=== PATIENT | male | born 1945 | race African-American/Black ===

== ENCOUNTER 2018-09-15 14:02 | Inpatient (IN) | payer OTHER | END 2018-09-29 11:25 | disposition home or self-care (01) | LOC: Y3W 09-23 17:41 → YASAS 14:02 → Y3W 21:13 ==

== ENCOUNTER 2018-12-29 15:55 | Inpatient (IN) | payer OTHER ==
[2018-12-29 22:19] VITALS: BMI 22.6
--- NOTE | 2018-12-30 01:36 | HP ---
CIWA Score - Admission Criteria [facility]ASAS Guidelines: Admission for Medically Managed Detox: Requires at least one of the followin. CIWA greater than 12 2. Seizures within the past 24 hours 3. Delirium tremens within the past 24 hours 4. Hallucinations within the past 24 hours 5. Acute intervention needed for co occurring medical disorder 6. Acute intervention needed for co occurring psychiatric disorder 7. Severe withdrawal that cannot be handled at a lower level of care (continued vomiting, continued diarrhea, abnormal vital signs) requiring intravenous medication and/or fluids 8. Admission ROS BHS - HPI Chief Complaint: Seeking admission to Rehab. Allergies/Adverse Reactions: Allergies Allergy/AdvReac Type Severity Reaction Status Date / Time No Known Allergies Allergy Verified 12/29/18 22:05 History of Present Illness: 73 years old male is seeking admission to Rehab. He was admitted at [facility] for the period December 22, 2018 - December 29, 2018. He was referred to Rehab. program due to opioid use disorder. He has medical history of hypertension, hepatitis B and seizure. He denies suicidal ideation at this time. Patient is status post a fall at home and has a periorbital laceration on his left eyebrow. - Ebola screening Have you traveled outside of the country in the last 21 days: No (N) Have you had contact with anyone from an Ebola affected area: No Do you have a fever: No - Review of Systems Constitutional: No Symptoms Reported EENT: reports: No Symptoms Reported Respiratory: reports: No Symptoms reported Cardiac: reports: No Symptoms Reported GI: reports: No Symptoms Reported : reports: No Symptoms Reported Musculoskeletal: reports: No Symptoms Reported Integumentary: reports: No Symptoms Reported Neuro: reports: No Symptoms reported Endocrine: reports: No Symptoms Reported Hematology: reports: No Symptoms Reported Psychiatric: reports: No Sypmtoms Reported, Mood/Affect Appropiate Other Systems: Reviewed and Negative Patient History - Patient Medical History Hx Anemia: No Hx Asthma: No Hx Chronic Obstructive Pulmonary Disease (COPD): No Hx Cancer: No Hx Cardiac Disorders: No Hx Congestive Heart Failure: No Hx Hypertension: Yes (Nifedipine) Hx Hypercholesterolemia: No Hx Pacemaker: No HX Cerebrovascular Accident: No Hx Seizures: Yes (Keppra) Hx Dementia: No Hx Diabetes: No Hx Gastrointestinal Disorders: No Hx Liver Disease: Yes (HEP B - not on medication) Hx Genitourinary Disorders: No Hx Sexually Transmitted Disorders: No Hx Renal Disease (ESRD): No Hx Thyroid Disease: No Hx Human Immunodeficiency Virus (HIV): No Hx Hepatitis C: No Hx Depression: No Hx Suicide Attempt: No Hx Bipolar Disorder: No Hx Schizophrenia: No - Patient Surgical History Past Surgical History: Yes Other Surgical History: JAW FX Anesthesia Reaction: No - PPD History Documented Results: Negative w/proof Implanted On Prior [facility] Admission?: Yes Date: 09/17/18 PPD to be Administered?: No - Reproductive History Patient is a Female of Child Bearing Age (11 -55 yrs old): No (male) - Smoking Cessation Smoking history: Current every day smoker Have you smoked in the past 12 months: Yes Aproximately how many cigarettes per day: 4 Cigars Per Day: 0 Hx Chewing Tobacco Use: No Initiated information on smoking cessation: Yes 'Breaking Loose' booklet given: 12/30/18 - Substance & Tx. History Hx Alcohol Use: Yes Hx Substance Use: Yes Substance Use Type: Alcohol, Cocaine, Opiates Hx Substance Use Treatment: Yes ([facility]) - Substances abused Heroin Other (specify): SNIFF Substance route: Inhalation Frequency: Daily Amount used: 4-5 BAGS Age of first use: 21 Date of last use: 12/29/18 Alcohol Other (specify): wine-maddog Substance route: Oral Frequency: Daily Amount used: 1 pint of wine Age of first use: 21 Date of last use: 12/29/18 Family Disease History - Family Disease History Family History: Denies Admission Physical Exam [facility] - Vital Signs Vital Signs: Vital Signs - 24 hr 12/29/18 22:04 Temperature 97.2 F L Pulse Rate 87 Respiratory 16 Rate Blood Pressure 113/72 - Physical General Appearance: Yes: Within Normal Limits HEENTM: Yes: Within Normal Limits Respiratory: Yes: Within Normal Limits Neck: Yes: Supple Breast: Yes: Breast Exam Deferred Cardiology: Yes: Regular Rhythm, Regular Rate Abdominal: Yes: Normal Bowel Sounds Genitourinary: Yes: Within Normal Limits Back: Yes: Normal Inspection Musculoskeletal: Yes: Within Normal Limits Extremities: Yes: Normal Inspection Neurological: Yes: Within Normal Limits, Normal Mood/Affect Integumentary: Yes: Warm Lymphatic: Yes: Within Normal Limits Cleared for Admission [facility] - Detox or Rehab [facility] Level of Care: Observation Bed Claeared for Rehab Admission: Yes Breathalyzer - Breathalyzer Breathalyzer: 0 Urine Drug Screen - Test Device Lot number: [id number] Expiration date: 09/23/20 - Control Is test valid?: Yes - Results Drug screen NEGATIVE: No Urine drug screen results: FEN-Fentanyl, MOP-Opiates, OXY-Oxycodone, MTD- Methadone Inpatient Rehab Admission - Rehab Decision to Admit Inpatient rehab admission?: Yes - Initial Determination Are CD services needed?: No Free of communicable disease: Yes Not in need of hospitalization: No - Rehab Admission Criteria Previous failed treatment: Yes Poor recovery environment: Yes Comorbidities: Yes Lacks judgement: Yes Patient is meeting Inpatient Rehab admission criteria:: Yes
[2018-12-30] MEDS ORDERED: MAGNESIUM HYDROX 2400MG/30ML ORAL SUSPENSION 30 ML CUP PO PRN (02:01)
[2018-12-30] MEDS ORDERED: P-EPHED 60MG/TRIPROLIDI 2.5MG TABLET PO PRN (02:01)
[2018-12-30] MEDS ORDERED: MAGNESIUM CITRATE 300 ML BOTTLE PO PRN (02:01)
[2018-12-30] MEDS ORDERED: LOPERAMIDE HCL 2 MG CAPSULE PO PRN (02:01)
[2018-12-30] MEDS ORDERED: MENTHOL/PHENOL 1 EACH UD MM PRN (02:01)
[2018-12-30] MEDS ORDERED: guaiFENesin 200 MG/10 ML 10 ML UNIT-DOSE CUPS PO PRN (02:01)
[2018-12-30] MEDS ORDERED: NICOTINE POLACRILEX 2 MG GUM BC PRN (02:01)
[2018-12-30] MEDS ORDERED: MAG HYDROX/AL HYDROX/SIMETH 30 ML UNIT-DOSE CUP PO PRN (02:01)
[2018-12-30] MEDS: levETIRAcetam 500 MG TABLET (FP) PO SCH ×2 (10:05→21:46)
[2018-12-30] MEDS: PRENATAL VITAMINS W/ FOLIC ACID TABLET (FP) PO SCH (10:05)
[2018-12-30] MEDS: NICOTINE 14 MG/24 HOURS TOPICAL PATCH TD SCH (10:06)
[2018-12-30] MEDS: BACITRACIN/POLYMYXIN B SULFATE 15 GM TUBE TP SCH ×2 (10:14→21:46)
[2018-12-30] MEDS: NIFEdipine E.R. 30 MG TABLET (FP) PO SCH (10:59)
--- NOTE | 2018-12-30 12:17 | EKG ---
Test Reason : Blood Pressure : / mmHG Vent. Rate : 089 BPM Atrial Rate : 089 BPM P-R Int : 198 ms QRS Dur : 076 ms QT Int : 398 ms P-R-T Axes : 075 036 064 degrees QTc Int : 484 ms NORMAL SINUS RHYTHM MINIMAL VOLTAGE CRITERIA FOR LVH, MAY BE NORMAL VARIANT SEPTAL INFARCT , AGE UNDETERMINED ABNORMAL ECG WHEN COMPARED WITH ECG OF 15-SEP-2018 21:08, SEPTAL INFARCT IS NOW PRESENT Confirmed by MARTIN HILL MD ([id number]) on 12/30/2018 12:17:06 PM Referred By: Confirmed By:MARTIN HILL MD
[2018-12-30 13:03] LABS: URINE APPEARANCE Clear; URINE BILIRUBIN Negative (NEGATIVE); URINE COLOR Yellow; URINE GLUCOSE (UA) Negative (NEGATIVE); URINE KETONE Negative (NEGATIVE); URINE LEUK ESTERASE Negative (NEGATIVE); URINE NITRITE Negative (NEGATIVE); URINE PROTEIN Negative (NEGATIVE); URINE UROBILINOGEN 0.2 mg/dL (0.2-1.0)
[2018-12-30] MEDS: THIAMINE HCL 100 MG TABLET (FP) PO SCH (21:46)
[2018-12-30] MEDS: MELATONIN 5 MG TABLETS PO PRN (21:47)
[2018-12-30] MEDS: IBUPROFEN 400 MG TABLET (FP) PO PRN (21:48)
[2018-12-31] MEDS ORDERED: PT OWN MED DRAWER 7, Y5N ONE (08:57)
[2018-12-31] MEDS: IBUPROFEN 400 MG TABLET (FP) PO PRN (09:27)
[2018-12-31] MEDS: NICOTINE 14 MG/24 HOURS TOPICAL PATCH TD SCH (09:28)
[2018-12-31] MEDS: levETIRAcetam 500 MG TABLET (FP) PO SCH ×2 (09:28→21:10)
[2018-12-31] MEDS: PRENATAL VITAMINS W/ FOLIC ACID TABLET (FP) PO SCH (09:28)
[2018-12-31] MEDS: NIFEdipine E.R. 30 MG TABLET (FP) PO SCH (12:54)
[2018-12-31] MEDS: ACETAMINOPHEN 325 MG TABLET (FP) PO PRN ×2 (12:54→21:11)
[2018-12-31] MEDS: BACITRACIN/POLYMYXIN B SULFATE 15 GM TUBE TP SCH ×2 (12:56→21:11)
[2018-12-31 14:18] LABS: HEMATOCRIT 40.2 % (35.4-49); HEMOGLOBIN 13.6 GM/dL (11.7-16.9); MCH 32.8 pg (25.7-33.7); MEAN CELL VOLUME 96.5 fl (80-96); MEAN PLT VOLUME 7.7 fl (7.5-11.1); PLATELET COUNT 304 K/MM3 (134-434); RBC 4.16 M/mm3 (4.00-5.60); RDW 14.1 % (11.9-15.9); WHITE BLOOD COUNT 7.5 K/mm3 (4.0-10.0)
[2018-12-31 14:39] LABS: ALBUMIN 3.5 g/dl (3.4-5.0); BILIRUBIN,TOTAL 0.5 mg/dL (0.2-1); BLOOD UREA NITROGEN 12.6 mg/dL (7-18); CALCIUM 9.3 mg/dL (8.5-10.1); CREATININE 0.9 mg/dL (0.55-1.3); POTASSIUM 3.9 mmol/L (3.5-5.1); TOT PROT 7.8 g/dl (6.4-8.2)
[2018-12-31] MEDS: THIAMINE HCL 100 MG TABLET (FP) PO SCH (21:10)
[2019-01-01] MEDS: NIFEdipine E.R. 30 MG TABLET (FP) PO SCH (09:07)
[2019-01-01] MEDS: levETIRAcetam 500 MG TABLET (FP) PO SCH ×2 (09:07→21:35)
[2019-01-01] MEDS: PRENATAL VITAMINS W/ FOLIC ACID TABLET (FP) PO SCH (09:07)
[2019-01-01] MEDS: IBUPROFEN 400 MG TABLET (FP) PO PRN ×2 (09:08→21:35)
[2019-01-01] MEDS: NICOTINE 14 MG/24 HOURS TOPICAL PATCH TD SCH (09:09)
[2019-01-01] MEDS: BACITRACIN/POLYMYXIN B SULFATE 15 GM TUBE TP SCH ×2 (09:09→21:35)
[2019-01-01] MEDS: ACETAMINOPHEN 325 MG TABLET (FP) PO PRN (11:57)
[2019-01-01] MEDS: THIAMINE HCL 100 MG TABLET (FP) PO SCH (21:35)
[2019-01-02] MEDS: levETIRAcetam 500 MG TABLET (FP) PO SCH ×2 (09:53→21:38)
[2019-01-02] MEDS: NIFEdipine E.R. 30 MG TABLET (FP) PO SCH (09:53)
[2019-01-02] MEDS: PRENATAL VITAMINS W/ FOLIC ACID TABLET (FP) PO SCH (09:54)
[2019-01-02] MEDS: IBUPROFEN 400 MG TABLET (FP) PO PRN ×2 (09:54→21:39)
[2019-01-02] MEDS: BACITRACIN/POLYMYXIN B SULFATE 15 GM TUBE TP SCH ×2 (09:54→21:38)
[2019-01-02] MEDS: NICOTINE 14 MG/24 HOURS TOPICAL PATCH TD SCH (10:52)
[2019-01-02] MEDS: THIAMINE HCL 100 MG TABLET (FP) PO SCH (21:38)
[2019-01-03] MEDS: NICOTINE 14 MG/24 HOURS TOPICAL PATCH TD SCH (09:44)
[2019-01-03] MEDS: BACITRACIN/POLYMYXIN B SULFATE 15 GM TUBE TP SCH ×2 (09:44→21:47)
[2019-01-03] MEDS: levETIRAcetam 500 MG TABLET (FP) PO SCH ×2 (09:44→21:47)
[2019-01-03] MEDS: PRENATAL VITAMINS W/ FOLIC ACID TABLET (FP) PO SCH (09:44)
[2019-01-03] MEDS: NIFEdipine E.R. 30 MG TABLET (FP) PO SCH (09:45)
[2019-01-03] MEDS: THIAMINE HCL 100 MG TABLET (FP) PO SCH (21:47)
[2019-01-03] MEDS: IBUPROFEN 400 MG TABLET (FP) PO PRN (21:48)
[2019-01-03] MEDS: MELATONIN 5 MG TABLETS PO PRN (21:49)
[2019-01-04] MEDS: NICOTINE 14 MG/24 HOURS TOPICAL PATCH TD SCH (09:58)
[2019-01-04] MEDS: PRENATAL VITAMINS W/ FOLIC ACID TABLET (FP) PO SCH (09:58)
[2019-01-04] MEDS: BACITRACIN/POLYMYXIN B SULFATE 15 GM TUBE TP SCH ×2 (09:58→21:21)
[2019-01-04] MEDS: NIFEdipine E.R. 30 MG TABLET (FP) PO SCH (09:58)
[2019-01-04] MEDS: levETIRAcetam 500 MG TABLET (FP) PO SCH ×2 (09:58→21:20)
[2019-01-04] MEDS: IBUPROFEN 400 MG TABLET (FP) PO PRN (09:59)
[2019-01-04] MEDS: THIAMINE HCL 100 MG TABLET (FP) PO SCH (21:20)
[2019-01-04] MEDS: MELATONIN 5 MG TABLETS PO PRN (21:20)
[2019-01-05] MEDS: BACITRACIN/POLYMYXIN B SULFATE 15 GM TUBE TP SCH ×2 (09:48→21:54)
[2019-01-05] MEDS: NICOTINE 14 MG/24 HOURS TOPICAL PATCH TD SCH (09:48)
[2019-01-05] MEDS: IBUPROFEN 400 MG TABLET (FP) PO PRN (09:48)
[2019-01-05] MEDS: levETIRAcetam 500 MG TABLET (FP) PO SCH ×2 (09:48→21:31)
[2019-01-05] MEDS: NIFEdipine E.R. 30 MG TABLET (FP) PO SCH (09:48)
[2019-01-05] MEDS: PRENATAL VITAMINS W/ FOLIC ACID TABLET (FP) PO SCH (09:48)
[2019-01-05] MEDS: THIAMINE HCL 100 MG TABLET (FP) PO SCH (21:31)
[2019-01-05] MEDS: MELATONIN 5 MG TABLETS PO PRN (21:31)
[2019-01-06] MEDS ORDERED: PT OWN MED DRAWER 7, Y5N ONE (08:45)
[2019-01-06] MEDS: PRENATAL VITAMINS W/ FOLIC ACID TABLET (FP) PO SCH (10:03)
[2019-01-06] MEDS: NIFEdipine E.R. 30 MG TABLET (FP) PO SCH (10:03)
[2019-01-06] MEDS: BACITRACIN/POLYMYXIN B SULFATE 15 GM TUBE TP SCH ×2 (10:03→21:27)
[2019-01-06] MEDS: IBUPROFEN 400 MG TABLET (FP) PO PRN (10:04)
[2019-01-06] MEDS: levETIRAcetam 500 MG TABLET (FP) PO SCH ×2 (10:04→21:26)
[2019-01-06] MEDS: NICOTINE 14 MG/24 HOURS TOPICAL PATCH TD SCH (10:17)
[2019-01-06] MEDS: THIAMINE HCL 100 MG TABLET (FP) PO SCH (21:26)
[2019-01-06] MEDS: MELATONIN 5 MG TABLETS PO PRN (21:26)
[2019-01-07] MEDS: NIFEdipine E.R. 30 MG TABLET (FP) PO SCH (09:47)
[2019-01-07] MEDS: PRENATAL VITAMINS W/ FOLIC ACID TABLET (FP) PO SCH (09:47)
[2019-01-07] MEDS: levETIRAcetam 500 MG TABLET (FP) PO SCH ×2 (09:47→21:33)
[2019-01-07] MEDS: NICOTINE 14 MG/24 HOURS TOPICAL PATCH TD SCH (09:48)
[2019-01-07] MEDS: BACITRACIN/POLYMYXIN B SULFATE 15 GM TUBE TP SCH ×2 (09:48→21:34)
[2019-01-07] MEDS: IBUPROFEN 400 MG TABLET (FP) PO PRN (09:48)
[2019-01-07] MEDS: MELATONIN 5 MG TABLETS PO PRN (21:33)
[2019-01-07] MEDS: THIAMINE HCL 100 MG TABLET (FP) PO SCH (22:26)
[2019-01-08] MEDS ORDERED: PT OWN MED DRAWER 7, Y5N ONE (08:41)
[2019-01-08] MEDS: PRENATAL VITAMINS W/ FOLIC ACID TABLET (FP) PO SCH (09:36)
[2019-01-08] MEDS: levETIRAcetam 500 MG TABLET (FP) PO SCH ×2 (09:36→21:17)
[2019-01-08] MEDS: NIFEdipine E.R. 30 MG TABLET (FP) PO SCH (09:36)
[2019-01-08] MEDS: BACITRACIN/POLYMYXIN B SULFATE 15 GM TUBE TP SCH ×2 (09:37→21:17)
[2019-01-08] MEDS: NICOTINE 14 MG/24 HOURS TOPICAL PATCH TD SCH (09:37)
[2019-01-08] MEDS: IBUPROFEN 400 MG TABLET (FP) PO PRN (21:17)
[2019-01-08] MEDS: THIAMINE HCL 100 MG TABLET (FP) PO SCH (21:17)
[2019-01-08] MEDS: MELATONIN 5 MG TABLETS PO PRN (21:18)
[2019-01-09] MEDS ORDERED: PT OWN MED DRAWER 7, Y5N ONE (08:37)
[2019-01-09] MEDS: NICOTINE 14 MG/24 HOURS TOPICAL PATCH TD SCH (09:41)
[2019-01-09] MEDS: levETIRAcetam 500 MG TABLET (FP) PO SCH ×2 (09:41→21:36)
[2019-01-09] MEDS: NIFEdipine E.R. 30 MG TABLET (FP) PO SCH (09:42)
[2019-01-09] MEDS: BACITRACIN/POLYMYXIN B SULFATE 15 GM TUBE TP SCH ×2 (09:42→21:37)
[2019-01-09] MEDS: PRENATAL VITAMINS W/ FOLIC ACID TABLET (FP) PO SCH (09:42)
--- NOTE | 2019-01-09 14:23 | CONSULT ---
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 Refer to addiction counselor's summary for further information Medical History: Significant for hypertension, hepatitis B and history of surgery for fracture of mandible in the . Smokes 4 cigarettes daily Psychiatric History: Denies previous psychiatric treatment. However, reports sleeping poorly Physical/Sexual Abuse/Trauma History: Denies history of emotional, physical or sexual abuse as DV relationship Additional Comment: Reports history of 2 felony. Denies being on parole currently Mental Status Exam - Mental Status Exam Alert and Oriented to: Place, Person Cognitive Function: Fair Patient Appearance: Well Groomed Mood: Hopeful, Euthymic Patient Behavior: Cooperative Voice Loudness: Normal Thought Process: Intact, Goal Oriented Thought Disorder: Not Present Hallucinations: Denies Suicidal Ideation: Denies Homicidal Ideation: Denies Insight/Judgement: Poor Sleep: Poorly Appetite: Fair Muscle strength/Tone: Normal Gait/Station: Normal Psychiatric Findings - Problem List ([place] 1, 2,3) (1) Substance-induced sleep disorder Current Visit: Yes Status: Acute (2) Alcohol dependence Current Visit: Yes Status: Acute (3) Opioid dependence Current Visit: Yes Status: Acute (4) Nicotine dependence Current Visit: No Status: Chronic Qualifiers: Nicotine product type: cigarettes Substance use status: uncomplicated Qualified Code(s): F17.210 - Nicotine dependence, cigarettes, uncomplicated (5) HTN (hypertension) Current Visit: No Status: Chronic Qualifiers: Hypertension type: essential hypertension Qualified Code(s): I10 - Essential (primary) hypertension (6) Hepatitis C Current Visit: No Status: Chronic (7) Drug-induced seizure Current Visit: No Status: Resolved Comment: history of - Initial Treatment Plan Initial Treatment Plan: 1) Start Belsomra 10m mg po HS prn for insomnia. 2) Continue inpatient rehabilitation
[2019-01-09] MEDS: THIAMINE HCL 100 MG TABLET (FP) PO SCH (21:37)
[2019-01-09] MEDS: SUVOREXANT 10 MG TABLET PO PRN (21:38)
[2019-01-10] MEDS ORDERED: PT OWN MED DRAWER 7, Y5N ONE (08:55)
[2019-01-10] MEDS: NICOTINE 14 MG/24 HOURS TOPICAL PATCH TD SCH (09:40)
[2019-01-10] MEDS: levETIRAcetam 500 MG TABLET (FP) PO SCH ×2 (09:40→21:23)
[2019-01-10] MEDS: NIFEdipine E.R. 30 MG TABLET (FP) PO SCH (09:40)
[2019-01-10] MEDS: PRENATAL VITAMINS W/ FOLIC ACID TABLET (FP) PO SCH (09:40)
[2019-01-10] MEDS: BACITRACIN/POLYMYXIN B SULFATE 15 GM TUBE TP SCH ×2 (09:41→21:23)
[2019-01-10] MEDS: THIAMINE HCL 100 MG TABLET (FP) PO SCH (21:23)
[2019-01-10] MEDS: IBUPROFEN 400 MG TABLET (FP) PO PRN (21:24)
[2019-01-10] MEDS: SUVOREXANT 10 MG TABLET PO PRN (21:25)
[2019-01-11] MEDS: levETIRAcetam 500 MG TABLET (FP) PO SCH ×2 (09:50→21:19)
[2019-01-11] MEDS: NIFEdipine E.R. 30 MG TABLET (FP) PO SCH (09:50)
[2019-01-11] MEDS: PRENATAL VITAMINS W/ FOLIC ACID TABLET (FP) PO SCH (09:50)
[2019-01-11] MEDS: BACITRACIN/POLYMYXIN B SULFATE 15 GM TUBE TP SCH ×2 (09:51→21:19)
[2019-01-11] MEDS: NICOTINE 14 MG/24 HOURS TOPICAL PATCH TD SCH (09:51)
--- NOTE | 2019-01-11 10:16 | DS ---
[facility] Rehab Discharge Summary - [facility] Rehab Discharge Summary Admission Date: 12/30/18 Discharge Date: 01/12/19 - History Present History: Alcohol dependence, Opioid dependence Additional Comments: patient is medically stable for discharge. Pertinent Past History: 73 years old AA man admitted at [facility] for the period December 22, 2018 - December 29, 2018. He was referred to Rehab program due to opioid use disorder. He has medical history of hypertension, hepatitis B and seizure. He denies suicidal ideation. - Discharge Physical Exam Vital Signs: Vital Signs Temperature 97.8 F 01/11/19 06:34 Pulse Rate 92 H 01/11/19 06:34 Respiratory Rate 16 01/11/19 06:34 Blood Pressure 113/85 01/11/19 06:34 O2 Sat by Pulse Oximetry (%) Pertinent Admission Physical Exam Findings: Physical General Appearance: No apparent distress HEENTM: PERRLA, poor dentition Respiratory:Lungs clear Neck: Supple Cardiology: S1 S2 audible and regular Abdominal: +Bowel Sounds Musculoskeletal: gait steady, Full ROM, full weight bearing Neurological: Cn 2-12 intact, no neurological deficits noted Integumentary: Warm dry, color consistent throughout trunk and extremities - Treatment Discharge Condition: Outpatient referral accepted (Medically stable for discharge. Patient will go to [facility] for aftercare) Hospital Course: Patient has attended meetings, met with his counselor, and was adherent to treatment plan and his medication regimen. - Medication Discharge Medications: Ambulatory Orders Nifedipine [Procardia Xl] 30 mg PO DAILY #30 tab.er.[id number] 01/11/19 levETIRAcetam [Keppra -] 1,000 mg PO BID #60 tablet 01/11/19 - Medication-Assisted Treatment (MAT) Medication-Assisted Treatment (MAT): No - Discharge Instructions Diet, activity, other medical instructions: Diet: as tolerated Activity: as tolerated Other medical instructions: Please keep aftercare appointment at [facility] on 01/16. Please make appointment with PCP within 2 weeks of discharge. - Diagnosis (1) Alcohol dependence Current Visit: Yes Status: Chronic Qualifiers: Substance use status: uncomplicated Qualified Code(s): F10.20 - Alcohol dependence, uncomplicated (2) Opioid dependence Current Visit: Yes Status: Chronic Qualifiers: Substance use status: uncomplicated Qualified Code(s): F11.20 - Opioid dependence, uncomplicated - Follow-up Referral Minutes to complete discharge: 20 - AMA Did Patient Leave Against Medical Advice: No Additional Comments: patient will go to [facility] for aftercare.
[2019-01-11] MEDS: THIAMINE HCL 100 MG TABLET (FP) PO SCH (21:19)
[2019-01-11] MEDS: SUVOREXANT 10 MG TABLET PO PRN (21:21)
[2019-01-12 05:49] VITALS: BP 115/73; PULSE 95; TEMP 98
== END 2019-01-12 08:42 | disposition home or self-care (01) | DRG 895 ==
LOC: YASAS 15:55 → Y3W 12-30 01:21
PROVIDERS: ADMIT Surgery; ATTEND Neuromusculoskeletal Medicine & OMM
PROC: HZ42ZZZ Group Counseling for Substance Abuse Treatment, Cognitive-Behavioral (ICD-10-PCS; principal; 2018-12-30)
DX: F11.20 Opioid dependence, uncomplicated (principal); F19.282 Other psychoactive substance dependence with psychoactive substance-induced sleep disorder; B18.1 Chronic viral hepatitis B without delta-agent; F10.20 Alcohol dependence, uncomplicated; F17.210 Nicotine dependence, cigarettes, uncomplicated; I10 Essential (primary) hypertension; G40.909 Epilepsy, unspecified, not intractable, without status epilepticus; Z86.19 Personal history of other infectious and parasitic diseases
CPT/HCPCS: 36415; 80053; 80177; 81003; 85027; 86593; 93005; 93010

== ENCOUNTER 2021-12-18 12:22 | Inpatient (IN) | payer OTHER ==
[2021-12-18 15:39] VITALS: BMI 19.3
[2021-12-18] MEDS ORDERED: LOPERAMIDE HCL 2 MG CAPSULE PO PRN (16:42)
[2021-12-18] MEDS ORDERED: MAG HYDROX/AL HYDROX/SIMETH 30 ML UNIT-DOSE CUP PO PRN (16:42)
[2021-12-18] MEDS ORDERED: ACETAMINOPHEN 325 MG TABLET (FP) PO PRN ×2 (16:42)
[2021-12-18] MEDS ORDERED: MAGNESIUM HYDROX 2400MG/30ML ORAL SUSPENSION 30 ML CUP PO PRN (16:42)
[2021-12-18] MEDS ORDERED: BENZOCAINE/MENTHOL (CHLORASEPTIC ) LOZENGE MM PRN (16:42)
[2021-12-18] MEDS ORDERED: DICYCLOMINE HCL 10 MG CAPSULE PO PRN (16:42)
[2021-12-18] MEDS ORDERED: BISMUTH SUBSALICYLATE 524 MG/30 ML PO PRN (16:42)
[2021-12-18] MEDS ORDERED: IBUPROFEN 400 MG TABLET (FP) PO PRN (16:42)
[2021-12-18] MEDS ORDERED: ONDANSETRON *ODT* 4 MG TABLET SL PRN (16:42)
[2021-12-18] MEDS ORDERED: NICOTINE 10 MG CARTRIDGE (INHALER) IH PRN (16:42)
[2021-12-18] MEDS ORDERED: IBUPROFEN 600 MG TABLET (FP) PO PRN (16:42)
[2021-12-18] MEDS ORDERED: hydrOXYzine PAMOATE 25 MG CAPSULE (FP) PO PRN (16:42)
[2021-12-18] MEDS ORDERED: MAGNESIUM CITRATE 300 ML BOTTLE PO PRN (16:42)
[2021-12-18] MEDS ORDERED: METHOCARBAMOL 500 MG TABLET PO PRN (16:42)
[2021-12-18] MEDS: MELATONIN 5 MG TABLETS PO SCH (22:30)
[2021-12-18] MEDS: THIAMINE HCL 100 MG TABLET (FP) PO SCH (22:30)
[2021-12-19] MEDS: PRENATAL VITAMINS W/ FOLIC ACID TABLET (FP) PO SCH (10:51)
[2021-12-19] MEDS: NIFEdipine E.R. 30 MG TABLET PO SCH (11:48)
[2021-12-19] MEDS: levETIRAcetam 500 MG TABLET (FP) PO SCH ×2 (11:48→23:15)
[2021-12-19] MEDS ORDERED: cloNIDine HCL 0.1 MG TABLET PO PRN (13:13)
[2021-12-19 14:24] LABS: HEMATOCRIT 42.5 % (35.4-49); MCH 30.5 pg (25.7-33.7); MCHC 32.8 g/dl (32.0-35.9); MEAN CELL VOLUME 92.9 fl (80-96); MEAN PLT VOLUME 7.5 fl (7.5-11.1); PLATELET COUNT 307 10^3/uL (134-434); RBC 4.57 M/mm3 (4.00-5.60); RDW 13.5 % (11.9-15.9); WHITE BLOOD COUNT 5.5 K/mm3 (4.0-10.0)
[2021-12-19 14:29] LABS: ALBUMIN 3.5 g/dl (3.4-5.0); CALCIUM 9.2 mg/dL (8.5-10.1)
[2021-12-19 14:32] LABS: CREATININE 0.9 mg/dL (0.55-1.3)
[2021-12-19 14:34] LABS: BILIRUBIN,TOTAL 0.8 mg/dL (0.2-1); TOT PROT 8.2 g/dl (6.4-8.2)
[2021-12-19] MEDS ORDERED: LORazepam 2 MG TABLET PO SCH (17:00)
[2021-12-19] MEDS: MELATONIN 5 MG TABLETS PO SCH (23:14)
[2021-12-19] MEDS: LORazepam 1 MG TABLET PO SCH (23:15)
[2021-12-19] MEDS: THIAMINE HCL 100 MG TABLET (FP) PO SCH (23:15)
[2021-12-20] MEDS: LORazepam 1 MG TABLET PO SCH ×4 (06:13→22:08)
[2021-12-20] MEDS ORDERED: methaDONE HCL 10 MG TABLET (FOR DETOX USE ONLY) PO ONE (10:00)
[2021-12-20] MEDS: NIFEdipine E.R. 30 MG TABLET PO SCH (11:00)
[2021-12-20] MEDS: levETIRAcetam 500 MG TABLET (FP) PO SCH ×2 (11:00→22:07)
[2021-12-20] MEDS: PRENATAL VITAMINS W/ FOLIC ACID TABLET (FP) PO SCH (11:01)
[2021-12-20 18:35] VITALS: RESP 18
[2021-12-20] MEDS: THIAMINE HCL 100 MG TABLET (FP) PO SCH (22:07)
[2021-12-20] MEDS: MELATONIN 5 MG TABLETS PO SCH (22:08)
[2021-12-21 03:10] VITALS: BP 128/84; PULSE 70
[2021-12-21 03:35] VITALS: TEMP 97.6
[2021-12-21] MEDS: LORazepam 1 MG TABLET PO SCH ×2 (08:05→10:26)
[2021-12-21] MEDS: PRENATAL VITAMINS W/ FOLIC ACID TABLET (FP) PO SCH (10:26)
[2021-12-21] MEDS: NIFEdipine E.R. 30 MG TABLET PO SCH (10:26)
[2021-12-21] MEDS: levETIRAcetam 500 MG TABLET (FP) PO SCH (10:26)
[2021-12-22] MEDS ORDERED: LORazepam 0.5 MG TABLET PO PRN
[2021-12-22] MEDS ORDERED: LORazepam 0.5 MG TABLET PO ONE (05:00)
== END 2021-12-21 13:56 | disposition short-term general hospital (02) | DRG 897 ==
LOC: YASAS 12:22 → UNDOADMIN 15:59 → Y3N 15:59
PROVIDERS: ADMIT Allergy & Immunology; ATTEND Surgery
PROC: HZ2ZZZZ Detoxification Services for Substance Abuse Treatment (ICD-10-PCS; principal; 2021-12-18)
DX: F11.23 Opioid dependence with withdrawal (principal); F10.230 Alcohol dependence with withdrawal, uncomplicated; F17.210 Nicotine dependence, cigarettes, uncomplicated; E87.6 Hypokalemia; I10 Essential (primary) hypertension; Z96.642 Presence of left artificial hip joint; Z86.19 Personal history of other infectious and parasitic diseases; W01.0XXA Fall on same level from slipping, tripping and stumbling without subsequent striking against object, initial encounter; Y92.230 Patient room in hospital as the place of occurrence of the external cause; Y93.89 Activity, other specified; Z91.81 History of falling; Z99.89 Dependence on other enabling machines and devices
CPT/HCPCS: 36415; 70450-TC; 80053; 84132; 85027; 86780; 87811; 93005; 93010; C9803-CS; U0003; U0005

== ENCOUNTER 2021-12-21 05:03 | Emergency (ER) | payer OTHER ==
[2021-12-21 05:26] VITALS: PULSE 72; RESP 20; TEMP 97.5; BMI 26.5
[2021-12-21 11:38] LABS: PH,URINE 8.5 (5.0-8.0); URINE APPEARANCE CLEAR; URINE BILIRUBIN NEGATIVE (NEGATIVE); URINE COLOR YELLOW; URINE GLUCOSE (UA) NEGATIVE (NEGATIVE); URINE KETONE NEGATIVE (NEGATIVE); URINE LEUK ESTERASE NEGATIVE (NEGATIVE); URINE NITRITE NEGATIVE (NEGATIVE); URINE PROTEIN NEGATIVE (NEGATIVE)
[2021-12-21 12:01] VITALS: BP 160/70
== END 2021-12-21 14:40 | disposition home or self-care (01) ==
LOC: JER 05:03
DX: S09.90XA Unspecified injury of head, initial encounter (principal); R33.9 Retention of urine, unspecified; W01.0XXA Fall on same level from slipping, tripping and stumbling without subsequent striking against object, initial encounter
CPT/HCPCS: 70450-TC; 72170-TC-FY; 72192-TC; 81003; 87086; 99285-25